=== PATIENT | male | born 1965 | race Asian ===

== ENCOUNTER 2020-01-26 02:28 | Emergency (ER) | payer BC, OTHER ==
[~2020-01-26] VITALS: Ht 170.2 cm; Wt 65.0 kg
--- NOTE | 2020-01-26 03:13 | NUR ---
PT BIB [facility] AFTER BEING FOUND "LAYING IN THE STREET WITH THE DOG." PT'S GIRLFRIEND IS THE PRIMARY HISTORIAN, THE PATIENT IS RESPONSIVE TO PAINFUL STIMULI WITH INCOMPREHENSIVE SOUNDS. PER GIRLFRIEND, PT DRANK AND DID METH TONIGHT. PT IS PROTECTING HIS AIRWAY, AND HOB IS ELEVATED. VSS. RESPIRATIONS EVEN AND UNLABORED. GIRLFRIEND ASLEEP AT THE BEDSIDE.
--- NOTE | 2020-01-26 03:33 | NUR ---
PT REMAINS SLEEPING AND BREATHING WITHOUT DIFFICULTY.
--- NOTE | 2020-01-26 04:08 | NUR ---
Pt to imaging.
--- NOTE | 2020-01-26 04:22 | NUR ---
unable to do ct exam patient became combative/not holding still/liability to fall off table had coworker assist unsuccessful.
--- NOTE | 2020-01-26 05:15 | NUR ---
THIS RN TO CT WITH PT. PT AWAKE AND ALERT. PT ABLE TO HOLD STILL FOR EXAM.
--- NOTE | 2020-01-26 05:28 | NUR ---
PT UP TO BEDSIDE COMMODE.
--- NOTE | 2020-01-26 06:26 | NUR ---
PT SLEEPING, VISIBLE CHEST RISE AND FALL. GIRLFRIEND AT BEDSIDE.
--- NOTE | 2020-01-26 06:42 | NUR ---
REPORT TO BERRY AVERY. PT REMAINS SLEEPING.
--- NOTE | 2020-01-26 06:43 | NUR ---
RECEIVED REPORT FROM YRIS. PT LAYING ON GURNEY SLEEPING, NAD WITH EQUAL CHEST RISE/FALL, GF AT BS WATCHING TV, NO NEEDS AT THIS TIME, CALL LIGHT WITHIN REACH.
[2020-01-26 07:58] VITALS: BP 119/72
--- NOTE | 2020-01-26 07:58 | NUR ---
PT ABLE TO AMBULATE STEADILY W/O ASSIST, GIVEN DC INSTRUCTIONS, VERBALIZED UNDERSTANDING, LEFT WITH ALL PERSONAL BELONGINGS ACCOMPANIED BY GF, AMBULATED TO DC DESK.
== END 2020-01-26 08:16 | disposition home or self-care (01) ==
LOC: ED 06:06
DX: F10.120 Alcohol abuse with intoxication, uncomplicated (principal); R22.0 Localized swelling, mass and lump, head; R11.10 Vomiting, unspecified; E11.9 Type 2 diabetes mellitus without complications; F17.290 Nicotine dependence, other tobacco product, uncomplicated; Z72.9 Problem related to lifestyle, unspecified; Y90.9 Presence of alcohol in blood, level not specified
CPT/HCPCS: 70450; 99285